=== PATIENT | male | born 1980 | race Caucasian/White ===

== ENCOUNTER → 2019-02-12 | Outpatient (CLI) | payer OTHER ==
[~2019-02-12] VITALS: Ht 177.8 cm; Wt 81.8 kg
[~2019-02-12] MED LIST: NEXIUM20 MG PO; ZYRTEC10 M3 PO
[2019-02-12 09:58] VITALS: BP 138/80
--- NOTE | 2019-02-12 10:00 | NUR ---
IVF AT 200. WILL REASSESS LUNGS AND PATIENT IN 10 MIN TO INCREASE RATE
--- NOTE | 2019-02-12 10:20 | NUR ---
Lungs CTA, tolerating infusion well. Increased rate to 400 at this time. Will reassess lungs in 10 min then increase to goal rate of 500/h.
--- NOTE | 2019-02-12 10:40 | NUR ---
Lungs remain CTA. IVF rate increased to 500/h
[2019-02-12 12:25] VITALS: BP 130/81
== END ==
LOC: MSO 09:48 → AMSURD 09:48
DX: E86.0 Dehydration (principal); R11.2 Nausea with vomiting, unspecified
CPT/HCPCS: J2405; J7030